=== PATIENT | female | born 1995 | race American Indian/Alaskan Native ===

== ENCOUNTER 2016-09-24 17:59 | Outpatient (CLI) | payer MEDICAID ==
[2016-09-24] MEDS ORDERED: LACTATED RINGERS 500 ML IV ONE (19:25)
[2016-09-24 20:48] LABS: Urine Drugs of Abuse Note Disclamer
--- NOTE | 2016-09-24 20:53 | History and Physical Report ---
History of Present Illness Date of examination: 09/24/16 Date of admission: 09/24/16 Chief complaint: I broke my bag of water at 5p. History of present illness: This is a 21 yo EDC December 22, 2016 at 31 weeks with established care at [facility] under the direction of Lois Roman Webb ( [facility]). Patient stated that she recently had a cerclage secondary to her previous deliveries at 17 weeks and 28 weeks. She has been doing well and no complaints until today. She denies any medical problems other than hx of delivery. She stated that she was in the area as she is in the process of moving to this area but still continues to keep her regular established care via [facility] [facility] and [facility]. Today, she noticed while eating sphagetti and walking from the mailbox sat down and noticed dribbling and called EMS and was brought to our triage area for assessment. Past History Past Medical History: no pertinent history Past Surgical History: other (cerclage x2 ( last one in 2015 and recently 10 weeks ago ) ) [employer] History: denies: abnormal PAP smear, chlamydia, fibroids, gonorrhea, herpes , HIV, syphilis, trichomonas Family/Genetic History: none, diabetes (maternal grandmother ) Social history: no significant social history, , lives with family. denies: smoking, alcohol abuse, prescription drug abuse - Obstetrical History Expected Date of Delivery: 11/22/16 Actual Gestation: 31 Week(s) 4 Day(s) : 3 Para: 2 Hx # Term Pregnancies: 0 Number of Pregnancies: 2 Spontaneous Abortions: 0 Induced : 0 Number of Living Children: 1 Medications and Allergies Allergies Allergy/AdvReac Type Severity Reaction Status Date / Time Penicillins AdvReac Rash Verified 09/24/16 18:51 Review of Systems All systems: negative Constitutional: weight gain, no fever, no chills, no sweats, no fatigue, no weakness, no malaise, no lethargy, no poor appetite, no chronic pain Eyes: deferred Ears, nose, mouth and throat: deferred Cardiovascular: no chest pain, no orthopnea, no palpitations, no syncope, no lightheadedness, no dyspnea on exertion, no high blood pressure Respiratory: no shortness of breath, no congestion, no wheezing Breasts: deferred Gastrointestinal: no abdominal pain, no nausea, no vomiting, no diarrhea, no constipation, no change in bowel habits, no loss of appetite, no heartburn Rectal Exam: deferred Integumentary: deferred - Vital Signs Vital signs: Vital Signs Pulse BP Pulse Ox 89 119/67 99 09/24/16 18:47 09/24/16 18:47 09/24/16 18:47 Temp Pulse Resp BP Pulse Ox 98.4 F 73 18 119/67 98 09/24/16 18:50 09/24/16 20:37 09/24/16 18:50 09/24/16 18:47 09/24/16 20:37 - Physical Exam Breasts: Positive: deferred Cardiovascular: Regular rate, Normal S1, Normal S2 Lungs: Positive: Clear to auscultation, Normal air movement Abdomen: Positive: normal appearance, soft, normal bowel sounds. Negative: distention, tenderness, guarding Genitourinary (Female): Positive: normal external genitalia, normal perenium. Negative: perineal/vulvar lesions Vulva: both: normal Vagina: Positive: normal moisture Cervix: Negative: lesion Uterus: Positive: enlarged (31 cm) Anus/Rectum: Positive: normal perianal skin Extremities: Positive: normal. Negative: tenderness, edema Deep Tendon Reflex Grade: Normal +2 - Obstetrical FHR: category 1 Cervical Dilatation: 0 Uterine Tone Measurement Phase: Resting Results All other labs normal. Assessment and Plan A/P HD# 1 PPROM 31 weeks, previous care at [facility] EDC 11/22/16 1. Category 1 Strip, No contractions 2. VSS 3. Grossly ruptured: HALLIE 5.3, nitrazine and pooling positive 4. No evidence of infection ( afebrile, no cva tenderness, no uterine tenderness ) 5. US shows cephalic presentation , [id number] , cervical length 2.6cm ( cerclage ) , BPP 8/8, US EDC 11/13/16 6. BMZx1 ( 2144) dose given 7. GBS sent, gc sent , urine sent, labs sent ( after discussing with Dr. Wheeler and CNM that the patient had few visit to OB but continued care with MFM) 8. Discussed with patient for 20 min concerning dx, mgt and prognosis and possible transfer. Patient and agree that they are comfortable going back to [place] in which she has had previous child in 2016 and this current 9. Spoke with Dr. Teja Gonzáles concerning case and agreed if stable would agree with transfer 10. Spoke with CNM and Dr. Wheeler ( via CNM Dr. Wheeler would accept patient) 11. Transport team notified and transport initiated to [facility] 2nd floor labor and Delivery
[2016-09-24 21:17] VITALS: BP 125/75
[2016-09-24] MEDS ORDERED: CELESTONE SOLUSPAN IM ONE (22:00)
[2016-09-24 22:04] LABS: Basophils % (Auto) 0.2 % (0.0-1.8); Eosinophils % (Auto) 0.6 % (0.0-4.3); Mean Corpuscular HGB Conc 33 % (30-34); Mean Corpuscular Hemoglobin 29 pg (28-32); Mean Corpuscular Volume 88 fl (79-97); Platelet Count 277 K/mm3 (140-440); Red Blood Count 4.45 M/mm3 (3.65-5.03); Red Cell Distribution Width 13.1 % (13.2-15.2); White Blood Count 11.2 K/mm3 (4.5-11.0)
[2016-09-24 22:46] LABS: HIV-1 Antigen p24 Non React (Non React); HIVR-1/2 Ab Non React (Non React)
--- NOTE | 2016-09-25 07:54 | Ultrasound Report ---
BIOPHYSICAL PROFILE: INDICATION: Water broke. COMPARISON: None similar at this institution. TECHNIQUE: Transabdominal ultrasound with Doppler interrogation. 2 - breathing movements 2 - movements 2 - posture and tone 2 - Qualitative amniotic fluid volume 8 - TOTAL SCORE OF POSSIBLE 8 Heart Rate (bpm) 141
--- NOTE | 2016-09-25 14:50 | Ultrasound Report ---
OB ULTRASOUND GREATER THAN 14 WEEKS INDICATION: Water broke. COMPARISON: None similar. TECHNIQUE: Transabdominal grayscale ultrasound with Doppler interrogation. Gestation: [place] Position: Cephalic Amniotic Fluid: Decreased (< 7 cm) HALLIE = 5.3 cm Placenta: Posterior Placental Grade: II Heart Rate: 149 BPM Cervical length: 2.6 cm (Normal > 3 cm); possible cerclage. NEUROANATOMY VISUALIZED: Choroid Plexus Lateral Ventricle ANATOMY VISUALIZED: Stomach Kidneys Bladder Diaphragm Heart 3 Vessel Cord The following are not demonstrated due to maternal body habitus or lie: Spine, 4 chamber heart, Abd. Cord Insert, cisterna magna, cerebellum BPD: 8.3 cm = 33 w 3 d HC: 31.2 cm = 34 w 6 d AC: 26.5 cm = 30 w 4 d FL: 6.23 cm = 32 w 2 d HC/AC Ratio: 1.18 Cephalic Index: 79 Estimated Weight: 1836 grams LMP: 02/12/2016 Clinical age = 31 w 4 d EDC: 11/22/2016 US Gest. Age = 32 w 6 d EDC: 11/13/2016 CONCLUSION: Single, viable intrauterine gestation with ultrasound estimated age of 32 weeks and 6 days and EDC of 11/13/2016, currently in cephalic lie with other details, including oligohydramnios, as above. Thank you for the opportunity to participate in this patient's care.
== END 2016-09-24 22:40 | disposition other institution (70) ==
LOC: TRG 17:59 → LD 18:02 → TRG 22:40
PROVIDERS: ATTEND Obstetrics & Gynecology
DX: O42.92 Full-term premature rupture of membranes, unspecified as to length of time between rupture and onset of labor (principal); Z3A.32 32 weeks gestation of pregnancy
CPT/HCPCS: 36415; 76805; 76819; 80307; 85025; 85660; 86592; 86706; 86762; 86803; 87116; 87591; 87806; 96360; 96372; J0702; J7120